=== PATIENT | female | born 1990 | race American Indian/Alaskan Native ===

== ENCOUNTER 2021-08-20 13:00 | Emergency (ER) | payer OTHER ==
[2021-08-20] MEDS ORDERED: METOCLOPRAMIDE 10 MG/2 ML INJ IV ONE (14:33)
[2021-08-20] MEDS ORDERED: SODIUM CHLORIDE 0.9% 1000 ML 1,000 ML IV ONE (14:33)
[2021-08-20] MEDS ORDERED: diphenhydrAMINE 50 MG/ML VIAL IV ONE (14:37)
[2021-08-20] MEDS ORDERED: ACETAMINOPHEN W/CODEINE 300-30 MG TAB PO ONE (15:54)
[2021-08-20] MEDS ORDERED: ACETAMINOPHEN 325 MG TAB PO ONE (15:55)
[2021-08-20 15:58] LABS: Bilirubin,Urine NEG (Negative); Blood,Urine NEG (Negative); Color,Urine Yellow (Yellow); Mucus,Urine 3+ /HPF
--- NOTE | 2021-08-20 16:03 | Emergency Department Report ---
ED General Adult HPI - General Chief complaint: Headache Stated complaint: NAUSEA/HEADACHE Time Seen by Provider: 08/20/21 14:52 Source: patient Mode of arrival: Ambulatory Limitations: No Limitations - History of Present Illness Initial comments: 31-year-old -[place]ones[place] female patient presents with complaints of headache/facial pain and nausea and vomiting x4 days. She states she is 10 weeks . Patient states she was also seen at an urgent care a few days ago and was prescribed Zofran and a nasal spray. She states Zofran is not helpi ng with the nausea and vomiting. No abdominal pain, urinary symptoms, or vaginal bleeding per patient. She denies any other past medical history or known drug allergies. Patient also denies hematemesis/coffee-ground emesis, diarrhea, melena/hematochezia, cough, chest pain, or fever/chills/sweats or neck pain. Patient states that the urgent care she did have a negative COVID-19 test and she is currently vaccinated against COVID-19 Severity scale (0 -10): 10 - Related Data Previous Rx's Medication Instructions Recorded Last Taken Type Acetaminophen/Codeine [Tylenol 1 tab PO Q8H PRN #10 tab 08/20/21 Unknown Rx /Codeine # 3 tab] Metoclopramide [Reglan] 10 mg PO TID PRN #30 tab 08/20/21 Unknown Rx diphenhydrAMINE [Benadryl CAP] 25 mg PO TID PRN #30 capsule 08/20/21 Unknown Rx Allergies Allergy/AdvReac Type Severity Reaction Status Date / Time ondansetron [From Zofran] Allergy Headache Verified 08/20/21 13:20 ED Review of Systems ROS: Stated complaint: NAUSEA/HEADACHE Other details as noted in HPI Constitutional: denies: chills, fever, malaise ENT: denies: throat pain Respiratory: denies: cough, shortness of breath Cardiovascular: denies: chest pain Gastrointestinal: nausea, vomiting. denies: abdominal pain, diarrhea, constipation, hematemesis, melena, hematochezia Genitourinary: denies: urgency, dysuria, frequency, hematuria, discharge, abnormal menses, dyspareunia Musculoskeletal: denies: back pain Skin: denies: rash, lesions, change in color Neurological: headache. denies: numbness, paresthesias, abnormal gait, other (Denies numbness/tingling/weakness in her limbs, difficulty with sp eech/ambulation, confusion, memory loss; rates headache as a 6/10 in severity and states it does improve with Tylenol) Hematological/Lymphatic: denies: swollen glands ED Past Medical Hx - Medications Home Medications: Home Medications Medication Instructions Recorded Confirmed Last Taken Type Acetaminophen/Codeine [Tylenol 1 tab PO Q8H PRN #10 tab 08/20/21 Unknown Rx /Codeine # 3 tab] Metoclopramide [Reglan] 10 mg PO TID PRN #30 tab 08/20/21 Unknown Rx diphenhydrAMINE [Benadryl CAP] 25 mg PO TID PRN #30 capsule 08/20/21 Unknown Rx ED Physical Exam - General Limitations: No Limitations General appearance: alert, in no apparent distress - Head Head exam: Present: atraumatic, normocephalic - Eye Eye exam: Present: normal appearance, PERRL, EOMI. Absent: conjunctival injection - ENT ENT exam: Present: other (Tenderness to palpation noted bilaterally to maxillary sinuses) - Neck Neck exam: Present: normal inspection, full ROM. Absent: tenderness - Respiratory Respiratory exam: Present: normal lung sounds bilaterally. Absent: respiratory distress - Cardiovascular Cardiovascular Exam: Present: regular rate, normal rhythm - GI/Abdominal GI/Abdominal exam: Present: soft, normal bowel sounds. Absent: distended, tenderness, guarding, rebound, rigid - Back Exam Back exam: Present: full ROM - Neurological Exam Neurological exam: Present: alert, oriented X3, CN II-XII intact, normal gait. Absent: motor sensory deficit - Expanded Neurological Exam Expanded Cerebellar function: Finger to Nose: Normal, Heel to Baters: Normal, Romberg: Normal Sensory exam: Upper Extremity Light Touch: Normal, Lower Extremity Light Touch: Normal Motor strength exam: RUE: 4, LUE: 4, RLE: 4, LLE: 4 Best Eye Response ([place]): (4) open spontaneously Best Motor Response ([place]): (6) obeys commands Best Verbal Response ([place]): (5) oriented [place] Total: 15 - Psychiatric Psychiatric exam: Present: normal affect, normal mood - Skin Skin exam: Present: warm, dry, intact, normal color. Absent: rash ED Course Vital Signs 02/19/22 13:22 Temperature 98.4 F Pulse Rate 87 Respiratory 18 Rate Blood Pressure 109/64 [Right] O2 Sat by Pulse 100 Oximetry ED Medical Decision Making - Lab Data Result diagrams: 08/20/21 18:16 08/20/21 18:16 - Medical Decision Making 31-year-old -[place] female patient presents with complaints of headache/facial pain and nausea and vomiting x4 days. She states she is 10 weeks . Patient states she was also seen at an urgent care a few days a go and was prescribed Zofran and a nasal spray. She states Zofran is not helping with the nausea and vomiting. No abdominal pain, urinary symptoms, or vaginal bleeding per patient. She denies any other past medical history or known drug allergies. Patient also denies hematemesis/coffee-ground emesis, diarrhea, melena/hematochezia, cough, chest pain, or fever/chills/sweats or neck pain. Patient states that the urgent care she did have a negative COVID-19 test and she is currently vaccinated against COVID-19 Patient states headache improved to a 2/10 in severity after meds. Suspect she may have viral sinusitis given tenderness to palpation of the maxillary sinuses on exam and also given that she admits to congestion and the use of Flonase. No acute abnormalities noted on labs or UA. Vitals are normal and she is well- appearing. She is neurologically intact on exam and denies any red flag symptoms. Patient is stable for discharge home. Discussed in great detail signs and symptoms that should prompt immediate return to ED, patient verbalizes understanding. She is to follow-up with her [facility]ESSIONAL or PCP within 1 week. Critical care attestation.: If time is entered above; I have spent that time in minutes in the direct care of this critically ill patient, excluding procedure time. ED Disposition Clinical Impression: Headache, Dehydration, Vomiting Disposition: 01 HOME / SELF CARE / HOMELESS Is pt being admited?: No Condition: Stable Instructions: Hyperemesis Gravidarum, Sinusitis, Adult, [id number], Dehydration, Adult, [id number], Sinus Headache Additional Instructions: You may take Tylenol 650 mg with the Tylenol 3 as needed for headaches. Please only take the Tylenol No. 3 when your headaches are severe. This medication is addictive and does cause drowsiness. Increase your water intake to a minimum of 80 ounces a day. Continue taking Flonase as needed, however do not take this medication for more than 7 days in a row. Please follow-up with your [facility]ERNMENT SERVICES PROFESSIONAL within 1 week. If you develop any new or worsening symptoms seek immediate emergency treatment Prescriptions: diphenhydrAMINE [Benadryl CAP] 25 mg PO TID PRN #30 capsule PRN Reason: Nausea Metoclopramide [Reglan] 10 mg PO TID PRN #30 tab PRN Reason: Nausea Acetaminophen/Codeine [Tylenol /Codeine # 3 tab] 1 tab PO Q8H PRN #10 tab PRN Reason: severe headache Referrals: PRIMARY CARE, [Primary Care Provider] - 3-5 Days Forms: Work/School Release Form(ED)
[2021-08-20] MEDS ORDERED: LACTATED RINGERS 1,000 ML IV ONE (18:32)
[2021-08-20 18:34] LABS: Basophils # (Auto) 0.1 K/mm3 (0.0-0.1); Basophils % (Auto) 0.6 % (0.0-1.8); Eosinophils % (Auto) 0.2 % (0.0-4.3); Lymphocytes # (Auto) 2.2 K/mm3 (1.2-5.4); Lymphocytes % (Auto) 20.9 % (13.4-35.0); Mean Corpuscular HGB Conc 33 % (30-34); Mean Corpuscular Volume 85 fl (79-97); Monocytes # (Auto) 0.6 K/mm3 (0.0-0.8); Monocytes % (Auto) 5.9 % (0.0-7.3); Platelet Count 252 K/mm3 (140-440); Red Blood Count 3.52 M/mm3 (3.65-5.03); Red Cell Distribution Width 14.4 % (13.2-15.2)
[2021-08-20 18:56] LABS: Blood Urea Nitrogen 8 mg/dL (7-17); Calcium 8.8 mg/dL (8.4-10.2); Hemolysis Index 10
[2021-08-20 19:02] LABS: BUN/Creatinine Ratio 16
[2021-08-20 19:57] VITALS: BP 117/84
== END 2021-08-20 19:55 | disposition home or self-care (01) ==
LOC: ED 13:00
DX: O26.891 Other specified pregnancy related conditions, first trimester (principal); O21.9 Vomiting of pregnancy, unspecified; R51.9 Headache, unspecified; E86.0 Dehydration; Z88.8 Allergy status to other drugs, medicaments and biological substances; Z3A.10 10 weeks gestation of pregnancy
CPT/HCPCS: 36415; 80048; 81001; 85025; 96361; 96374; 96375; 99283; J1200; J2765; J7030; J7120; Q0162